=== PATIENT | male | born 1985 | race African-American/Black ===

== ENCOUNTER 2016-07-21 22:36 | Inpatient (IN) | payer BC, OTHER ==
--- NOTE | ~2016-07-21 | CR63 ---
[facility] A Service of [facility] & [facility] RADIOLOGY TEXT RESULTS PATIENT: CHAMP BALL LOCATION: [facility] : 84 UNIT #: [id number] AGE: [address]: Filipe Perez MD SEX: M ORDER DR: [id number] [facility] [address]. [place], [place] [address] [id number] I MR#: [id number] Acc #: [id number] NAME: CHAMP BALL : 1985 SEX: M STUDY DATE/TIME: 07/24/2016 1:44 UNIT: A ROOM: 240 STUDY DESCRIPTION: CR Chest 2 View Attending Physician: Filipe Perez Jr., M.D. Ordering Physician: Filipe Perez Jr., M.D. Primary Care Physician: No Primary Care Physician MEDICAL IMAGING REPORT This report is preliminary unless electronic signature is present EXAM Chest 2 views, 07/24/2016. INDICATION Fever 102.4, weakness, shortness of air, cyst removal today. Symptoms began 2 days ago. TECHNIQUE 2 views of the chest were performed. COMPARISON STUDIES No comparisons. FINDINGS Correlation is made with CT 07/22/2016 of the abdomen and pelvis. Cardiac silhouette within normal limits. The vascularity is unremarkable. Lung volumes are low. Bibasilar atelectasis or infiltrates are present and are new or worsened compared to the prior CT. No pneumothorax. Lateral view degraded by nonstandard positioning and exposure factors. No significant effusion. IMPRESSION Low lung volumes with bibasilar atelectasis or infiltrates. No significant effusion. No pneumothorax. Dictated by... Justino Yo M.D. THIS IS AN ELECTRONICALLY VERIFIED REPORT Justino Yo M.D. at 07/24/2016 9:54 PM JLY/geovannaw [facility] A Service of [facility] & [facility] RADIOLOGY TEXT RESULTS PATIENT: CHAMP BALL LOCATION: [facility] : 84 UNIT #: [id number] AGE: [address]: Filipe Perez MD SEX: M ORDER DR: TD: 07/24/2016 14:21 JOB #: [id number] MEDICAL IMAGING REPORT Page 1 of 1 COPY
--- NOTE | ~2016-07-21 | OR ---
Unit #: [id number] #: [id number] Patient: CHAMP BALL [id number] [address] [place], [place] [address] [id number] Hola MR#: [id number] NAME: CHAMP BALL ROOM: 240 Date of Procedure: 07/22/2016 Admission Date: 07/22/2016 Surgeon: Chacorta Ribera III, M.D. : 1985 Attending Physician: Filipe Perez Jr., M.D. OPERATIVE REPORT PREOPERATIVE DIAGNOSIS Acute abdomen. POSTOPERATIVE DIAGNOSES Sigmoid diverticulitis with perforation and pelvic abscess. PROCEDURE PERFORMED Exploratory laparotomy, sigmoid colectomy with end colostomy, and drainage of pelvic abscess. DIRECTOR CARDIOLOGY Filipe Perez M.D. SPECIMEN Sigmoid colon to pathology. COMPLICATIONS None apparent. ESTIMATED BLOOD LOSS 100 mL. ANESTHESIA General endotracheal tube anesthesia. DRAINS None. INDICATIONS FOR PROCEDURE This is a 31-year-old gentleman, who has had some acute abdominal pain. He came in and CT scan showed free air and some inflammation around the sigmoid colon. He is here today for exploratory laparotomy and understands the possibility of having to have a colostomy for the next 3 to 6 months. DESCRIPTION OF PROCEDURE After consent was obtained, the patient was brought to the operating room and placed in the supine position. General anesthetic was administered and his abdomen was prepped and draped in standard surgical fashion. I made a midline laparotomy and entered into the peritoneal cavity without any difficulty. In anticipation of a left lower quadrant colostomy, I did keep the incision just to the right of the umbilicus. He had a lot of Unit #: [id number] #: [id number] Patient: CHAMP BALL murky fluid within the abdominal cavity and this was irrigated. As I performed exploration, he had looked like a pelvic abscess and fluid from there was obtained and sent for microbiology cultures. I began by mobilizing the sigmoid colon, where the inflammation was. Once I had this freed up by after mobilizing the lateral peritoneal attachments, I then divided the proximal sigmoid colon with a KATIE 75 stapler. I then took down the mesenteric attachments using Casco clamps and 0 silk ties. I stayed well away from the ureters. I then carried this all the way down to approximately a 1 cm or 2 cm above the peritoneal reflection. I used a contour stapler to divide the distal sigmoid rectal junction. Once I had that the specimen removed, I irrigated and had good hemostasis. I then created a left lower quadrant colostomy and made a cruciate incision in the anterior fascia and divided the muscles longitudinally. I then dilated this opening to approximately accommodate 2 fingerbreadths. I then brought up the proximal colostomy up through the colostomy site. I tacked it on the underside with 2 separate interrupted 2-0 silk sutures. I then closed the midline fascia with interrupted #1 Vicryl sutures. It should be noted that hemostasis was excellent. All needle, sponge, and instrument counts were correct x2. I then reapproximated the skin edges with stapling device. The colostomy was then matured by trimming off the staple line and then maturing it with a 3-0 Vicryl sutures to the dermal edges. A colostomy appliance was then applied. He tolerated the procedure without any problems and returned to the recovery room in stable condition. Dictated by... Chacorta Ribera III, M.D. VCL/marcellus TD: 07/23/2016 21:58 JOB #: [id number] OPERATIVE REPORT Page 1 of 1 X Chacorta Ribera III, MD PROCEDURE OPERATIVE NOTE
--- NOTE | ~2016-07-21 | CT2 ---
[facility] A Service of [facility] & [facility] RADIOLOGY TEXT RESULTS PATIENT: CHAMP BALL LOCATION: [facility] 240-01 : 84 UNIT #: [id number] AGE: [address]: Filipe Perez MD SEX: M ORDER DR: [id number] [facility] [address] [place], [place] [address] [id number] I MR#: [id number] Acc #: [id number] NAME: CHAMP BALL : 1985 SEX: M STUDY DATE/TIME: 07/22/2016 0:44 UNIT: CEDOF ROOM: 31253 STUDY DESCRIPTION: CT Abd and Pelv W Cont Attending Physician: Filipe ePrez Jr., M.D. Ordering Physician: Madhu Joshi D.O. Primary Care Physician: Primary Care Physician No MEDICAL IMAGING REPORT This report is preliminary unless electronic signature is present EXAM CT abdomen and pelvis with contrast, 07/22/2016 HISTORY 31-year-old male in the ED complaining of 6-day history of lower abdomen pain and distension. Painful bowel movements. TECHNIQUE CT examination of the abdomen and pelvis with oral and IV contrast. This CT exam was performed with one or more of the following radiation dose reduction techniques: automatic exposure control, adjustment of mA and/or kV according to patient size, and iterative reconstruction. FINDINGS ABDOMEN FINDINGS: The examination shows severe acute colitis involving the sigmoid colon diffusely with evidence of acute perforation of the mid sigmoid colon in the left side of the pelvis. This could represent perforated acute diverticulitis, though no diverticulosis is clearly visible. There is pericolonic free air within the pelvis, and there is a midline pelvic abscess extending into the inferior rectovesical space extending for a length of about 9 cm and measuring up to 4.6 cm x 3.5 cm. Peritoneal inflammation throughout pelvic fat. Multiple bubbles of free intraperitoneal air within the nondependent upper anterior abdomen. Small amount of ascites adjacent to the liver and spleen. Liver, pancreas, spleen and kidneys are negative. No convincing evidence of acute appendicitis. PELVIS FINDINGS: The urinary bladder and low rectum are unremarkable. No inguinal hernia. Limited lung base images show mild dependent posterior atelectasis. No pleural effusion. [facility] A Service of [facility] & [facility] RADIOLOGY TEXT RESULTS PATIENT: CHAMP BALL LOCATION: A 240-01 : 84 UNIT #: [id number] AGE: [address]: Filipe Perez MD SEX: M ORDER DR: IMPRESSION 1. Severe acute colitis involving much of the sigmoid colon with evidence of perforation and pelvic abscess formation as noted above. Midline pelvic abscess extends for a length of about 9 cm and measures up to 4.6 cm x 3.5 cm. Small amounts of free air adjacent to the inflamed midsigmoid colon. This likely represents perforated acute diverticulitis, though no diverticulosis is clearly seen. 2. Evidence of peritoneal inflammation throughout the pelvis. Small bubbles of free air within the nondependent upper anterior abdomen. Small amounts of scattered ascites adjacent to the liver and spleen. No bowel dilatation. Appendix is grossly negative. STAT * RESULT Dictated by... Kevin English M.D. THIS IS AN ELECTRONICALLY VERIFIED REPORT Kevin English M.D. at 07/26/2016 5:00 PM Joe TD: 07/22/2016 02:47 JOB #: [id number] MEDICAL IMAGING REPORT Page 1 of 1 COPY
--- NOTE | ~2016-07-21 | HP ---
Unit #: [id number] #: [id number] Patient: CHAMP BALL [id number] [address] [address] [id number] I MR#: [id number] NAME: CHAMP BALL ROOM: 15951 Age: 31 Sex: M Admission Date: 07/22/2016 : 1985 Attending Physician: Filipe Perez Jr., M.D. Primary Care Physician: No Primary Care Physician HISTORY AND PHYSICAL CHIEF COMPLAINT Severe abdominal pain. HISTORY OF PRESENT ILLNESS The patient is a 31-year-old black male who was in normal good health up until approximately a week ago when he developed some progressive abdominal pain. Initially it began mostly in the left lower quadrant but now is in all 4 quadrants of his abdomen. He has had some fever and chills. He was seen in the emergency room apparently at [facility] and treated with Zofran and Pepcid and sent home. Since then, he has progressively worsened and presented to the emergency room with these complaints. PAST MEDICAL HISTORY Serious illnesses - He has had no previous serious illnesses of significance. He does get occasional reflux. SURGERIES None in the past. MEDICATIONS He has been on Zofran and Pepcid and Yoan aspirin. ALLERGIES Sulfa. TRANSFUSIONS None in the past. FAMILY HISTORY Noncontributory. SOCIAL HISTORY The patient is single, engaged, nonsmoker, nondrinker. Has a normal good appetite. No recent weight change. IMMUNIZATIONS Immunizations are up to date. REVIEW OF SYSTEMS Twelve-system review has been performed, which was unremarkable, except that noted in the history of present illness. PHYSICAL EXAMINATION Unit #: [id number] #: [id number] Patient: CHAMP BALL GENERAL DESCRIPTION: The patient is a well-developed, muscular 31-year-old black male in mild distress due to abdominal pain. VITAL SIGNS: Temperature 98.5, pulse 87, respirations 18, blood pressure 112/58. HEENT: Unremarkable. NECK: Supple. CHEST: There is equal bilateral expansion with diminished breath sounds in the bases. RESPIRATORY: The lungs are clear bilaterally. HEART: Regular rhythm without murmurs, gallops. There is no evidence of cardiomegaly clinically. ABDOMEN: His abdomen is diffusely tender in all 4 quadrants with guarding and rebound, compatible with an acute abdomen. There are diminished bowel sounds. There is no evidence of ascites or hernias, but this would be difficult to examine due to the significant tenderness of his abdomen. EXTREMITIES: Full range of motion without limitation. There is no evidence of peripheral edema. BACK EXAM: There is no CVA tenderness. NEUROLOGIC: Grossly intact. DIAGNOSTIC STUDIES IMAGING: CT scan reveals evidence of acute perforating diverticulitis with a small amount of free air and pelvic abscess formation. LABORATORY: White blood cell count and laboratory values are basically normal. IMPRESSION The patient has severe perforating diverticulitis with pelvic abscess and an acute abdomen. PLAN The plan will be to go ahead with exploratory laparotomy, sigmoid resection with colostomy and Kourtney pouch. I have discussed the surgery, including the risks, including that of recurrence and infection, with the patient. He understands and consents. Dictated by Filipe Perez Jr. MPriya. JEFF/luis alberto TD: 07/22/2016 06:55 JOB #: [id number] HISTORY AND PHYSICAL Page 1 of 1 X Filipe Perez MD X HISTORY AND PHYSICAL
--- NOTE | ~2016-07-21 | DS ---
Unit #: [id number] #: [id number] Patient: CHAMP BALL [id number] [address] [place], [place] [address] [id number] I MR#: [id number] NAME: CHAMP BALL ROOM: 240 Age: 31 Sex: M Admission Date: 07/22/2016 : 1985 Discharge Date: Attending Physician: Filipe Perez Jr., M.D. DISCHARGE SUMMARY ADMITTING AND FINAL DIAGNOSIS Acute perforating diverticulitis of the sigmoid colon. SECONDARY DIAGNOSES None. BRIEF SUMMARY The patient is a 31-year-old black male, who was in normal good health up until just prior to his admission at this time to the hospital. He presented complaining of severe diffuse abdominal pain and was noted to have an acute abdomen when seen in the emergency room. His white blood cell count was markedly elevated and x-rays revealed evidence of pelvic abscess with acute diverticulitis in left lower quadrant. PHYSICAL EXAMINATION As noted above, the patient has an acute abdomen. HOSPITAL COURSE The patient was admitted, started on IV antibiotics in the emergency room and underwent an emergency exploratory laparotomy with sigmoid resection and Kourtney pouch. Postop, the patient has done extremely well. His wound was closed by Dr. Ribera and it appears to be noninfected. He is tolerating a diet, having bowel movements per colostomy. His colostomy is viable and functioning. He is afebrile in a satisfactory condition. Last white blood cell count was 10,000. The plan will be to discharge the patient to home. He will be on [place] 10/325 mg one or two p.o. q.4 to 6 hours p.r.n. pain, Flagyl 500 mg p.o. t.i.d., and Levaquin 500 mg p.o. q.a.m. for the next 10 days. He will be calling the office for a followup appointment for next week for staple removal. He will be keeping his wounds clean and dry, and on a regular home diet. No heavy lifting more than 5 to 10 pounds. Dictated by... Filipe Perez Jr., M.D. JMB/marcellus TD: 07/29/2016 06:32 JOB #: [id number] Unit #: [id number] #: [id number] Patient: CHAMP BALL DISCHARGE SUMMARY Page 1 of 1 X Filipe Perez MD X DISCHARGE SUMMARY
[2016-07-21 23:24] LABS: BASOPHIL% 0.2 % (0-2.5); EOSINOPHIL% 0.2 % (0.0-7.0); HEMATOCRIT 45.7 % (38.0-50.0); HEMOGLOBIN 14.9 gm/dL (13.0-16.0); LYMPHOCYTE# 0.8 X10e3 (1.0-3.5); LYMPHOCYTE% 19.9 % (17.0-45.0); MEAN CELL VOLUME 82.5 FL (83-96); MEAN CORPUSCULAR HEMOGLOBIN 26.8 PG (28-34); MEAN CORPUSCULAR HGB CONC 32.5 g/dL (30-36); MEAN PLATELET VOLUME 8.1 FL (6.5-11.5); MONOCYTE# 0.5 X10e3 (0-1.0); MONOCYTE% 13.8 % (3.0-12.0); NEUTROPHIL# 2.6 X10e3 (1.5-7.1); NEUTROPHIL% 65.9 % (40-75); PLATELET COUNT 349 X10e3 (140-420); RED BLOOD COUNT 5.55 X10e (3.90-5.60); RED CELL DISTRIBUTION WIDTH 13.4 % (11.0-15.5)
[2016-07-21 23:28] LABS: DIFF IND NO
[2016-07-21 23:45] LABS: ALBUMIN SERUM 3.4 g/dL (3.5-5.0); BILIRUBIN, DIRECT 0.3 mg/dL (0.0-0.2); BILIRUBIN,INDIRECT 0.6 mg/dL (0.0-0.9); BILIRUBIN,TOTAL 0.9 mg/dL (0.2-2.0); BUN/CREATININE RATIO 17.77; CREATININE SERUM 0.9 mg/dL (0.6-1.4); GLOM FILT RATE Estimated 130.5 mL/min (>60); POTASSIUM 3.8 mmol/L (3.5-5.1); PROTEIN TOTAL SERUM 7.7 g/dL (6.0-8.3)
[2016-07-22 01:13] LABS: URINE SOURCE CLEAN CATCH
[2016-07-22 01:20] LABS: URINE APPEARANCE CLEAR; URINE BLOOD NEG (NEG); URINE COLOR DK YELLOW; URINE GLUCOSE NEG (NEG); URINE KETONE 2+ (NEG); URINE LEUKOCYTE ESTERASE NEG (NEG); URINE NITRATE NEG (NEG); URINE PH 5.5 (5-8); URINE PROTEIN 1+ (NEG); URINE SPECIFIC GRAVITY 1.024 (1.003-1.035)
[2016-07-22 01:22] LABS: URBCS1 AUWI 0-2 /[HPF] (0-2); URINE BACTERIA AUWI NEG (NEGATIVE); URINE SQUAMOUS EPITHELIAL CELL NONE SEEN /[HPF]; UWBCS1 AUWI 0-2 (0-5)
[2016-07-22 01:28] LABS: URINE BILIRUBIN NEG (NEG)
[2016-07-22 01:29] LABS: CULTURE INDICATED? NO
[2016-07-22] MEDS ORDERED: FAMOTIDINE PO (03:32)
[2016-07-22] MEDS ORDERED: ZOFRAN ODT4 MG/UDTAB PO (03:32)
[2016-07-22] MEDS ORDERED: BAYER BACK & B1 EACH PO (03:33)
[2016-07-22 05:07] LABS: BASOPHIL% 0.1 % (0-2.5); EOSINOPHIL% 0.3 % (0.0-7.0); HEMATOCRIT 40.3 % (38.0-50.0); HEMOGLOBIN 13.2 gm/dL (13.0-16.0); LYMPHOCYTE% 16.6 % (17.0-45.0); MEAN CELL VOLUME 81.4 FL (83-96); MEAN CORPUSCULAR HEMOGLOBIN 26.7 PG (28-34); MEAN CORPUSCULAR HGB CONC 32.8 g/dL (30-36); MEAN PLATELET VOLUME 7.8 FL (6.5-11.5); MONOCYTE# 0.8 X10e3 (0-1.0); MONOCYTE% 12.8 % (3.0-12.0); NEUTROPHIL# 4.2 X10e3 (1.5-7.1); NEUTROPHIL% 70.2 % (40-75); PLATELET COUNT 361 X10e3 (140-420); RED BLOOD COUNT 4.95 X10e (3.90-5.60); RED CELL DISTRIBUTION WIDTH 13.5 % (11.0-15.5)
[2016-07-22 05:12] LABS: DIFF IND YES
[2016-07-22 06:44] LABS: PLATELET ESTIMATE NORMAL (NORMAL)
[2016-07-23 06:40] LABS: HEMATOCRIT 40.2 % (38.0-50.0); HEMOGLOBIN 12.7 gm/dL (13.0-16.0); MEAN CELL VOLUME 83.1 FL (83-96); MEAN CORPUSCULAR HEMOGLOBIN 26.3 PG (28-34); MEAN CORPUSCULAR HGB CONC 31.6 g/dL (30-36); MEAN PLATELET VOLUME 7.9 FL (6.5-11.5); RED BLOOD COUNT 4.84 X10e (3.90-5.60); RED CELL DISTRIBUTION WIDTH 13.6 % (11.0-15.5)
[2016-07-23 07:13] LABS: BUN/CREATININE RATIO 12.72; CALCIUM SERUM 8.2 mg/dL (8.4-10.2); CREATININE SERUM 1.1 mg/dL (0.6-1.4); GLOM FILT RATE Estimated 102.4 mL/min (>60); POTASSIUM 4.3 mmol/L (3.5-5.1)
[2016-07-24 06:31] LABS: BASOPHIL% 0.1 % (0-2.5); EOSINOPHIL% 0.1 % (0.0-7.0); HEMATOCRIT 36.4 % (38.0-50.0); HEMOGLOBIN 11.6 gm/dL (13.0-16.0); LYMPHOCYTE# 1.6 X10e3 (1.0-3.5); LYMPHOCYTE% 13.7 % (17.0-45.0); MEAN CELL VOLUME 82.3 FL (83-96); MEAN CORPUSCULAR HEMOGLOBIN 26.2 PG (28-34); MEAN CORPUSCULAR HGB CONC 31.9 g/dL (30-36); MEAN PLATELET VOLUME 7.6 FL (6.5-11.5); MONOCYTE% 8.7 % (3.0-12.0); NEUTROPHIL% 77.4 % (40-75); PLATELET COUNT 407 X10e3 (140-420); RED BLOOD COUNT 4.42 X10e (3.90-5.60); RED CELL DISTRIBUTION WIDTH 13.6 % (11.0-15.5); WHITE BLOOD COUNT 11.6 X10e3 (4.0-10.5)
[2016-07-24 06:33] LABS: DIFF IND NO
[2016-07-24 06:52] LABS: BUN/CREATININE RATIO 12.22; CALCIUM SERUM 8.2 mg/dL (8.4-10.2); CREATININE SERUM 0.9 mg/dL (0.6-1.4); GLOM FILT RATE Estimated 130.5 mL/min (>60); POTASSIUM 4.2 mmol/L (3.5-5.1)
[2016-07-25 05:21] LABS: HEMATOCRIT 36.6 % (38.0-50.0); HEMOGLOBIN 11.9 gm/dL (13.0-16.0); MEAN CELL VOLUME 81.7 FL (83-96); MEAN CORPUSCULAR HEMOGLOBIN 26.7 PG (28-34); MEAN CORPUSCULAR HGB CONC 32.6 g/dL (30-36); MEAN PLATELET VOLUME 7.5 FL (6.5-11.5); RED BLOOD COUNT 4.48 X10e (3.90-5.60); RED CELL DISTRIBUTION WIDTH 13.5 % (11.0-15.5); WHITE BLOOD COUNT 8.5 X10e3 (4.0-10.5)
[2016-07-25 06:19] LABS: BUN/CREATININE RATIO 11.25; CALCIUM SERUM 8.1 mg/dL (8.4-10.2); CREATININE SERUM 0.8 mg/dL (0.6-1.4); GLOM FILT RATE Estimated 137.1 mL/min (>60); POTASSIUM 4.1 mmol/L (3.5-5.1)
[2016-07-28 05:58] LABS: BASOPHIL% 0.4 % (0-2.5); EOSINOPHIL# 0.1 X10e3 (0-0.7); EOSINOPHIL% 1.2 % (0.0-7.0); HEMATOCRIT 37.9 % (38.0-50.0); HEMOGLOBIN 12.2 gm/dL (13.0-16.0); LYMPHOCYTE% 18.3 % (17.0-45.0); MEAN CELL VOLUME 82.5 FL (83-96); MEAN CORPUSCULAR HEMOGLOBIN 26.5 PG (28-34); MEAN CORPUSCULAR HGB CONC 32.1 g/dL (30-36); MEAN PLATELET VOLUME 7.8 FL (6.5-11.5); MONOCYTE# 0.9 X10e3 (0-1.0); MONOCYTE% 8.4 % (3.0-12.0); NEUTROPHIL# 7.7 X10e3 (1.5-7.1); NEUTROPHIL% 71.7 % (40-75); PLATELET COUNT 546 X10e3 (140-420); RED BLOOD COUNT 4.59 X10e (3.90-5.60); RED CELL DISTRIBUTION WIDTH 13.6 % (11.0-15.5); WHITE BLOOD COUNT 10.7 X10e3 (4.0-10.5)
[2016-07-28 06:01] LABS: DIFF IND NO
[2016-07-29] MEDS ORDERED: LEVAQUIN PO (07:48)
[2016-07-29] MEDS ORDERED: FLAGYL PO (07:48)
[2016-07-29] MEDS ORDERED: NORCO 10-325 TA1 TAB PO (07:49)
[2016-11-07] MEDS ORDERED: MULTIVITAMINS1 EAC3 PO (14:23)
== END 2016-07-29 13:19 | disposition home health service (06) | DRG 330 ==
LOC: CED 22:36 → CEDOF 07-22 02:25 → C2A 07-22 14:53
PROVIDERS: Emergency Medicine; Surgery
PROC: 0W9G0ZX Drainage of Peritoneal Cavity, Open Approach, Diagnostic (ICD-10-PCS; 2016-07-22)
PROC: 0DBN0ZZ Excision of Sigmoid Colon, Open Approach (ICD-10-PCS; principal; 2016-07-22 13:00)
PROC: 0D1N0Z4 Bypass Sigmoid Colon to Cutaneous, Open Approach (ICD-10-PCS; 2016-07-22 13:00)
DX: K57.20 Diverticulitis of large intestine with perforation and abscess without bleeding (principal); J98.11 Atelectasis; R50.82 Postprocedural fever; Z88.2 Allergy status to sulfonamides; K21.9 Gastro-esophageal reflux disease without esophagitis; Z79.82 Long term (current) use of aspirin
CPT/HCPCS: 36415; 71020; 74177; 80048; 80076; 81003; 83690; 85025; 85027; 87070; 87075; 87077; 87186; 87205; 88307; 94760; 96361; 96365; 96375; 96376; 99285; J1170; J2250; J2270; J2405; J2543; J2550; J3010; J3243; Q9967

== ENCOUNTER → 2016-11-07 | Outpatient (CLI) | payer BC, OTHER ==
[~2016-11-07] MED LIST: BAYER BACK & B1 EACH PO; FAMOTIDINE PO; FLAGYL PO; HYDROCODON-ACE1 EAC5 PO; LEVAQUIN PO; MULTIVITAMINS1 EAC3 PO; NORCO 10-325 TA1 TAB PO; ZOFRAN ODT4 MG/UDTAB PO
[2016-11-07 14:53] LABS: HEMATOCRIT 45.4 % (38.0-50.0); HEMOGLOBIN 14.7 gm/dL (13.0-16.0); MEAN CELL VOLUME 82.2 FL (83-96); MEAN CORPUSCULAR HEMOGLOBIN 26.7 PG (28-34); MEAN CORPUSCULAR HGB CONC 32.4 g/dL (30-36); MEAN PLATELET VOLUME 7.1 FL (6.5-11.5); RED BLOOD COUNT 5.52 X10e (3.90-5.60)
[2016-11-07 15:21] LABS: CALCIUM SERUM 9.4 mg/dL (8.4-10.2); CREATININE SERUM 1.1 mg/dL (0.6-1.4); GLOM FILT RATE Estimated 102.4 mL/min (>60); POTASSIUM 4.3 mmol/L (3.5-5.1)
== END | disposition home or self-care (01) ==
LOC: CAMB 13:57
PROVIDERS: Surgery
DX: Z01.812 Encounter for preprocedural laboratory examination (principal)
CPT/HCPCS: 36415; 80048; 85027

== ENCOUNTER 2016-11-18 07:38 | Inpatient (IN) | payer BC, OTHER ==
[~2016-11-18] VITALS: Ht 165.1 cm; Wt 89.5 kg
--- NOTE | ~2016-11-18 | DS ---
Unit #: [id number] #: [id number] Patient: CHAMP BALL [id number] [facility]. [address] [place], [place] [address] [id number] I MR#: [id number] NAME: CHAMP BALL. ROOM: 464 Age: 31 Sex: M Admission Date: 11/18/2016 : 1985 Discharge Date: 11/22/2016 Attending Physician: Chacorta Ribera III, M.D. Primary Care Physician: Maxi Doshi M.D. DISCHARGE SUMMARY ADMITTING FINAL DIAGNOSIS Status post sigmoid resection with colostomy and Kourtney pouch. SECONDARY DIAGNOSIS None. BRIEF SUMMARY The patient is a 31-year-old black male, who had a recent episode of acute perforating diverticulitis requiring exploratory laparotomy, sigmoid resection with colostomy and Kourtney pouch. He was brought in this time for colostomy closure by Dr. Ribera. Physical examination on admission revealed a colostomy in the left lower quadrant of the abdomen, otherwise was not remarkable. Admitting laboratory values basically within normal limits. HOSPITAL COURSE The patient was admitted, underwent exploratory surgery with colostomy closure. He did develop some anemia postop. His hemoglobin is stable at approximately 10 g. He has had no active bleeding, but it was felt he did have anemia secondary to acute blood loss. At present, his abdomen is soft, minimally tender. Wounds are clean, healing well. He is ambulating well. Tolerating diet. Having bowel movements. He is afebrile in satisfactory condition. The plan will be to discharge the patient home on regular diet. Limited lifting, no more than 5 to 10 pounds, will be keeping his wounds clean and dry, and be calling the office for followup appointment for next week for staple removal. He will be on [place] 10/325 mg one or two p.o. q.4 to 6 hours p.r.n. pain. Dictated by... Filipe Perez Jr., M.D. JEFF/marcellus TD: 11/23/2016 23:57 JOB #: [id number] Unit #: [id number] #: [id number] Patient: LIZZY,CHAMP S DISCHARGE SUMMARY Page 1 of 1 X Filipe Perez MD DISCHARGE SUMMARY
--- NOTE | ~2016-11-18 | OR ---
Unit #: [id number] #: [id number] Patient: CHAMP BALL [id number] [address] [place], [place] [address] [id number] Hola MR#: [id number] NAME: CHAMP BALL. ROOM: 464 Date of Procedure: 11/18/2016 Admission Date: 11/18/2016 Surgeon: Chacorta Ribera III, M.D. : 1985 Attending Physician: Chacorta Ribera III, M.D. Primary Care Physician: Maxi Doshi M.D. OPERATIVE REPORT PREOPERATIVE DIAGNOSIS History of colostomy secondary to perforated diverticulitis. POSTOPERATIVE DIAGNOSIS History of colostomy secondary to perforated diverticulitis. PROCEDURE PERFORMED Laparoscopic with conversion to open colostomy takedown with sigmoid rectal anastomosis. ENGINEERING INSPECTOR Filipe Perez M.D. SPECIMEN Colostomy remnants sent to Pathology. COMPLICATIONS None apparent. ESTIMATED BLOOD LOSS Less than 200 mL. INDICATIONS FOR PROCEDURE This is a 31-year-old gentleman, who presented previously with perforated diverticulitis and underwent exploratory laparotomy with colostomy formation. He is here today for takedown of his colostomy. DESCRIPTION OF PROCEDURE After consent was obtained, the patient was brought to the operating room and placed in the supine position. General anesthetic was administered. A Bishop catheter was placed and then he was placed comfortably in a dorsal lithotomy position. I irrigated his rectum and removed some residual stool and again irrigated with Betadine. I then prepped and draped his abdomen in a standard surgical fashion. I began by trying to do this laparoscopically. I used a 5-mm Optiview to enter the peritoneal cavity in the right upper quadrant. I placed a second 5-mm port in the right lower quadrant. I began using a combination of both blunt dissection and Endo Evie to try to take down some adhesions that were fairly dense along the midline. I was definitely able to get all the small bowel out of the pelvis and identified the rectal stump. However, there were quite a few dense adhesions again to the midline and I also identified a couple of small midline hernias. These adhesions really became troublesome and I Unit #: [id number] #: [id number] Patient: CHAMP BALL was worried about possible bowel injury if I persisted laparoscopically. At that point, I made the decision to convert to an open procedure in order to avoid; 1. An enterotomy. 2. To try to reapproximate the midline fascia at the end of the case, so that he would hopefully avoid a hernia repair in the future. I then made a midline laparotomy and carefully entered the peritoneal cavity without injuring the bowel. I took down all the adhesions along the midline and then was able to get around the colostomy with sharp dissection. I then made an elliptical incision around the colostomy itself and dissected down to the periphery of the colostomy and down to the fascia. Once this was dissected out from the surrounding muscle and fascia, I interiorized the colostomy. It should be noted the colostomy was closed shut at the beginning of the case with a 2-0 silk suture. Next, once I had all the adhesions taken down and the colostomy mobilized, I transected the distal colostomy and brought a 29 mm EEA anvil out through the antimesenteric border. I then stapled across the distal colostomy with a KATIE 75 stapler. This was then placed back into the abdominal cavity. I then inserted the other end of the 29 mm EEA stapler per rectum. Once this was in good position through the rectal stump, I deployed the spike, attached it to two ends of the stapler, it was carefully closed down to where there was nothing caught between the staple line and it was fired without incident. I then carefully removed the stapler per rectum. I tested the anastomosis by submerging it under water and insufflating air per rectum. There was no evidence of any leak of air indicating that this was watertight. I then had excellent hemostasis and all needle, sponge, and instrument counts were correct x2. I closed the fascia at the colostomy site both by reapproximating the posterior fascia and peritoneum with interrupted #1 Vicryl sutures. Anteriorly, it was closed as well with interrupted #1 Vicryl sutures. I then closed the midline fascia with interrupted #1 Vicryl sutures. I irrigated the subcutaneous tissue and then reapproximated all the incisions with a stapling device. He tolerated the procedure without any problems and returned to the recovery room in stable condition. Dictated by... Chacorta Ribera III, M.D. VCL/marcellus TD: 11/20/2016 05:54 JOB #: [id number] OPERATIVE REPORT Page 1 of 1 X Chacorta Ribera III, MD PROCEDURE OPERATIVE NOTE
[~2016-11-18 07:38] MED LIST changes: -HYDROCODON-ACE1 EAC5 PO
[2016-11-19 04:05] LABS: HEMATOCRIT 36.4 % (38.0-50.0); HEMOGLOBIN 11.4 gm/dL (13.0-16.0); MEAN CELL VOLUME 82.7 FL (83-96); MEAN CORPUSCULAR HGB CONC 31.4 g/dL (30-36); MEAN PLATELET VOLUME 7.6 FL (6.5-11.5); RED BLOOD COUNT 4.4 X10e (3.90-5.60); RED CELL DISTRIBUTION WIDTH 13.6 % (11.0-15.5); WHITE BLOOD COUNT 11.1 X10e3 (4.0-10.5)
[2016-11-19 04:39] LABS: CALCIUM SERUM 8.5 mg/dL (8.4-10.2); GLOM FILT RATE Estimated 114.9 mL/min (>60); POTASSIUM 4.1 mmol/L (3.5-5.1)
[2016-11-21 03:45] LABS: BASOPHIL% 0.4 % (0-2.5); DIFF IND NO; EOSINOPHIL# 0.1 X10e3 (0-0.7); EOSINOPHIL% 1.5 % (0.0-7.0); HEMATOCRIT 30.6 % (38.0-50.0); HEMOGLOBIN 9.9 gm/dL (13.0-16.0); LYMPHOCYTE# 2.2 X10e3 (1.0-3.5); LYMPHOCYTE% 42.3 % (17.0-45.0); MEAN CELL VOLUME 82.4 FL (83-96); MEAN CORPUSCULAR HEMOGLOBIN 26.7 PG (28-34); MEAN CORPUSCULAR HGB CONC 32.4 g/dL (30-36); MEAN PLATELET VOLUME 7.7 FL (6.5-11.5); MONOCYTE# 0.4 X10e3 (0-1.0); MONOCYTE% 8.6 % (3.0-12.0); NEUTROPHIL# 2.5 X10e3 (1.5-7.1); NEUTROPHIL% 47.2 % (40-75); PLATELET COUNT 222 X10e3 (140-420); RED BLOOD COUNT 3.72 X10e (3.90-5.60); RED CELL DISTRIBUTION WIDTH 13.3 % (11.0-15.5); WHITE BLOOD COUNT 5.2 X10e3 (4.0-10.5)
[2016-11-21 04:07] LABS: BUN/CREATININE RATIO 8.88; CALCIUM SERUM 8.6 mg/dL (8.4-10.2); CREATININE SERUM 0.9 mg/dL (0.6-1.4); GLOM FILT RATE Estimated 130.5 mL/min (>60); POTASSIUM 3.8 mmol/L (3.5-5.1)
[2016-11-22 03:47] LABS: BASOPHIL% 0.3 % (0-2.5); EOSINOPHIL# 0.2 X10e3 (0-0.7); EOSINOPHIL% 3.5 % (0.0-7.0); HEMATOCRIT 29.9 % (38.0-50.0); HEMOGLOBIN 10.1 gm/dL (13.0-16.0); LYMPHOCYTE# 2.2 X10e3 (1.0-3.5); LYMPHOCYTE% 46.7 % (17.0-45.0); MEAN CELL VOLUME 80.6 FL (83-96); MEAN CORPUSCULAR HEMOGLOBIN 27.4 PG (28-34); MEAN PLATELET VOLUME 7.2 FL (6.5-11.5); MONOCYTE# 0.5 X10e3 (0-1.0); MONOCYTE% 9.6 % (3.0-12.0); NEUTROPHIL# 1.9 X10e3 (1.5-7.1); NEUTROPHIL% 39.9 % (40-75); PLATELET COUNT 244 X10e3 (140-420); RED CELL DISTRIBUTION WIDTH 13.1 % (11.0-15.5); WHITE BLOOD COUNT 4.7 X10e3 (4.0-10.5)
[2016-11-22 03:51] LABS: DIFF IND NO
[2016-11-22] MEDS ORDERED: HYDROCODON-ACE1 EAC5 PO (09:12)
== END 2016-11-22 09:35 | disposition home or self-care (01) | DRG 330 ==
LOC: CSUR 07:38 → CPACUOF 09:49 → C4C 17:10
PROVIDERS: Surgery
PROC: 0WJP4ZZ Inspection of Gastrointestinal Tract, Percutaneous Endoscopic Approach (ICD-10-PCS; 2016-11-18)
PROC: 0DNW0ZZ Release Peritoneum, Open Approach (ICD-10-PCS; 2016-11-18)
PROC: 0DQN0ZZ Repair Sigmoid Colon, Open Approach (ICD-10-PCS; principal; 2016-11-18 09:30)
PROC: 0DQP0ZZ Repair Rectum, Open Approach (ICD-10-PCS; 2016-11-18 09:30)
DX: Z43.3 Encounter for attention to colostomy (principal); D62 Acute posthemorrhagic anemia; Z88.2 Allergy status to sulfonamides; K66.0 Peritoneal adhesions (postprocedural) (postinfection); K43.9 Ventral hernia without obstruction or gangrene
CPT/HCPCS: 80048; 85025; 85027; 88304; J0131; J0330; J1100; J1650; J2250; J2270; J2710; J3010